=== PATIENT | female | born 1985 | race Two or more races ===

== ENCOUNTER 2022-06-06 22:15 | Emergency (ER) | payer OTHER ==
[~2022-06-06] VITALS: Ht 157.5 cm; Wt 65.8 kg
--- NOTE | 2022-06-06 23:05 | NUR ---
Dr. Chirinos at bedside. MSE in progress.
[2022-06-06 23:36] LABS: HEMATOCRIT 30.9 % (31.2-41.9); MEAN CORPUSCULAR HEMOGLOBIN 24.7 uug (24.7-32.8); MEAN CORPUSCULAR VOLUME 77.6 fL (75.5-95.3); PLATELET COUNT (AUTO) 407 K/uL (179-408)
[2022-06-06 23:46] LABS: *BILIRUBIN,URIN NEGATIVE (NEGATIVE); *BLOOD, URINE 3+ (NEGATIVE); *KETONES,URINE NEGATIVE (NEGATIVE); *UROBILINOGEN,URINE 0.2 E.U./dl (NORMAL); LEUKOCYTE ESTERASE ,URINE NEGATIVE (NEGATIVE); NITRITE, URINE NEGATIVE (NEGATIVE); UGLUCOSE NEGATIVE (NEGATIVE)
[2022-06-06 23:47] LABS: *CLARITY,URINE HAZY (CLEAR); *COLOR,URINE DARK YELLOW (YELLOW)
[2022-06-06 23:48] LABS: *URINE HCG, QUAL NEGATIVE (NEGATIVE); BACTERIA,URINE FEW /HPF (NONE SEEN); RBC,URINE TNTC /HPF (0-3); SQUAMOUS EPITHELIAL CELL,UR FEW /HPF (NONE SEEN)
[2022-06-06 23:53] LABS: CREATININE 0.9 mg/dL (0.6-1.3); POTASSIUM 3.8 mmol/L (3.5-5.1)
--- NOTE | 2022-06-07 00:18 | NUR ---
color laboratory technician at bedside.
[2022-06-07 02:46] VITALS: BP 111/69
--- NOTE | 2022-06-07 02:46 | NUR ---
Patient discharged to home in stable condition. A/O x 4. NAD noted. Ambulatory with a steady gait. Written and verbal after care instructions given. Patient verbalizes understanding of instructions. Stressed follow up or return to ER for worsening s/s.
== END 2022-06-07 02:47 | disposition home or self-care (01) ==
LOC: ER 22:17
DX: N93.9 Abnormal uterine and vaginal bleeding, unspecified (principal); D25.9 Leiomyoma of uterus, unspecified; Z91.013 Allergy to seafood
CPT/HCPCS: 36415; 84703; 85025; 93005; A4663